=== PATIENT | female | born 1995 | race Caucasian/White ===

== ENCOUNTER → 2022-07-25 | Outpatient (CLI) | payer MEDICAID ==
[~2022-07-25] MED LIST: COLA100C5 PO; EFFE75CA2 PO; NEUR100C PO; NO HOME MEDICATIONS; PROZ10CA7 PO; SUBO8MIS SL; TRAZ-252 PO
== END ==
LOC: M OUTALCOH 10:20
PROVIDERS: ATTEND Psychiatry & Neurology Psychiatry
DX: Z13.30 Encounter for screening examination for mental health and behavioral disorders, unspecified (principal)

== ENCOUNTER 2022-08-14 14:00 | Outpatient (RCR) | payer MEDICAID | END 2022-08-21 | LOC: M OUTALCOH 14:00 | PROVIDERS: ATTEND Psychiatry & Neurology Psychiatry | DX: F11.21 Opioid dependence, in remission (principal); F12.20 Cannabis dependence, uncomplicated; F17.200 Nicotine dependence, unspecified, uncomplicated ==

== ENCOUNTER 2022-09-11 14:00 | Outpatient (RCR) | payer MEDICAID | END 2022-09-20 | LOC: M OUTALCOH 14:00 | PROVIDERS: ATTEND Psychiatry & Neurology Psychiatry | DX: F11.21 Opioid dependence, in remission (principal); F12.20 Cannabis dependence, uncomplicated; F17.200 Nicotine dependence, unspecified, uncomplicated ==

== ENCOUNTER 2022-09-25 14:00 | Outpatient (RCR) | payer MEDICAID | END 2022-10-21 | LOC: M OUTALCOH 14:00 | PROVIDERS: ATTEND Psychiatry & Neurology Psychiatry | DX: F11.21 Opioid dependence, in remission (principal); F12.20 Cannabis dependence, uncomplicated; F17.200 Nicotine dependence, unspecified, uncomplicated ==

== ENCOUNTER 2022-10-26 13:08 | Outpatient (RCR) | payer MEDICAID, OTHER | END 2022-11-21 | LOC: M OUTALCOH 13:08 | PROVIDERS: ATTEND Psychiatry & Neurology Psychiatry | DX: F11.21 Opioid dependence, in remission (principal); F12.20 Cannabis dependence, uncomplicated; F17.200 Nicotine dependence, unspecified, uncomplicated ==

== ENCOUNTER → 2023-08-03 | Outpatient (CLI) | payer OTHER ==
[~2023-08-03] MED LIST changes: +AMOX500C PO; +IBUP-1022 PO
== END ==
LOC: M RAD 16:21
PROVIDERS: ATTEND Nurse Practitioner Family
DX: K04.7 Periapical abscess without sinus (principal)

== ENCOUNTER 2023-10-20 15:17 | Emergency (ER) | payer OTHER ==
[~2023-10-20] VITALS: Ht 157.5 cm; Wt 59.2 kg
[2023-10-20 15:17] VITALS: TEMP 98
[2023-10-20] MEDS ORDERED: BUPR1SUB33 (15:28)
[2023-10-20 18:18] LABS: RSV AMPLIFICATION POSITIVE (NEGATIVE)
[2023-10-20] MEDS ORDERED: BENZ200C70 PO (19:25)
[2023-10-20 19:59] VITALS: BP 135/84; O2SAT 96
== END 2023-10-20 20:49 | disposition home or self-care (01) ==
LOC: M ED 15:17
DX: J06.9 Acute upper respiratory infection, unspecified (principal); B97.4 Respiratory syncytial virus as the cause of diseases classified elsewhere; H65.03 Acute serous otitis media, bilateral; Z88.1 Allergy status to other antibiotic agents; Z79.1 Long term (current) use of non-steroidal anti-inflammatories (NSAID)

== ENCOUNTER → 2023-11-22 | Outpatient (REF) | payer OTHER ==
[~2023-11-22] MED LIST changes: +BENZ200C70 PO; +BUPR1SUB33
[2023-11-22 17:25] LABS: BASO % 0.8 % (0.0-1.0); EOS # 0.1 10^3/uL (0.0-0.5); EOS % 2.4 % (0.0-3.0); HEMATOCRIT 42.5 % (36.0-47.0); HEMOGLOBIN 15.1 g/dl (12.0-15.5); LYMPH # 1.3 10^3/uL (1.5-5.0); LYMPH % 35.3 % (24.0-44.0); MEAN CORPUSCULAR HGB CONC 35.5 g/dl (32.0-36.5); MEAN CORPUSCULAR VOLUME 98.6 fl (80.0-96.0); MONO # 0.3 10^3/uL (0.0-0.8); NEUTROPHILS % 53.5 % (36.0-66.0); PLATELET COUNT, AUTOMATED 264 10^3/uL (150-450); RED BLOOD COUNT 4.31 10^6/uL (4.00-5.40); WHITE BLOOD COUNT 3.7 10^3/uL (4.0-10.0)
[2023-11-22 17:49] LABS: ALBUMIN 4.2 G/DL (3.2-5.2); ALKALINE PHOSPHATASE 50 U/L (46-116); ALT/SGPT 153 U/L (7.0-40); AST/SGOT 104 U/L (<34); BILIRUBIN,TOTAL 1.2 MG/DL (0.3-1.2); BLOOD UREA NITROGEN 13 MG/DL (9-23); CALCIUM LEVEL 9.4 MG/DL (8.5-10.1); CARBON DIOXIDE LEVEL 29 MMOL/L (20-31); CHLORIDE LEVEL 104 MMOL/L (98-107); CHOLESTEROL LEVEL 165 MG/DL (<200); CHOLESTEROL RISK RATIO 2.74 (<5); CREATININE FOR GFR 0.63 MG/DL (0.55-1.30); GLOMERULAR FILTRATION RATE > 60.0 (>60); GLUCOSE, FASTING 85 MG/DL (60-100); HDL CHOLESTEROL 60.2 MG/DL (>40); LDL CHOLESTEROL 92.4 MG/DL (<100); NON-HDL-C 104.8 MG/DL; POTASSIUM SERUM 4.3 MMOL/L (3.5-5.1); SODIUM LEVEL 138 MMOL/L (136-145); TOTAL PROTEIN 8.1 G/DL (5.7-8.2); TRIGLYCERIDES LEVEL 62 MG/DL (<150)
[2023-11-22 17:50] LABS: THYROID STIMULATING HORMONE 3.071 uIU/ML (0.55-4.78)
[2023-11-22 17:51] LABS: TOTAL 25(OH) VITAMIN D 15.4 NG/ML (20.0-100.0)
[2023-11-22 18:02] LABS: HEMOGLOBIN A1c 4.7 % (4.0-6.0)
== END ==
LOC: M LAB REF 16:13
PROVIDERS: ATTEND Nurse Practitioner Family
DX: Z13.228 Encounter for screening for other metabolic disorders (principal)

== ENCOUNTER → 2023-11-29 | Outpatient (REF) | payer OTHER, MEDICAID ==
[2023-11-29 18:48] LABS: ALBUMIN 4.1 G/DL (3.2-5.2); ALKALINE PHOSPHATASE 46 U/L (46-116); ALT/SGPT 182 U/L (7.0-40); AST/SGOT 109 U/L (<34); BILIRUBIN,DIRECT 0.3 MG/DL (<0.4); BILIRUBIN,TOTAL 0.9 MG/DL (0.3-1.2); TOTAL PROTEIN 7.6 G/DL (5.7-8.2)
[2023-11-29 18:49] LABS: HEPATITIS B SURFACE ANTIBODY NEGATIVE (POSITIVE)
[2023-11-29 19:39] LABS: HEPATITIS C VIRUS ABY INDEX > 11.00 INDEX (<0.8)
== END ==
LOC: M LAB REF 17:46
PROVIDERS: ATTEND Nurse Practitioner Family
DX: B18.2 Chronic viral hepatitis C (principal)

== ENCOUNTER → 2024-01-03 | Outpatient (CLI) | payer OTHER | LOC: M PLALAB 12:21 | PROVIDERS: ATTEND Internal Medicine Infectious Disease | DX: B18.2 Chronic viral hepatitis C (principal) ==

== ENCOUNTER 2024-01-31 17:41 | Emergency (ER) | payer OTHER ==
[~2024-01-31] VITALS: Ht 157.5 cm; Wt 60.4 kg
[2024-01-31] MEDS ORDERED: EPCL1TAB PO (17:54)
[2024-01-31] MEDS ORDERED: BUPR15TA PO (17:54)
[2024-01-31] MEDS ORDERED: BUPR-69 PO (17:54)
[2024-01-31 18:39] LABS: BASO % 0.9 % (0.0-1.0); EOS # 0.1 10^3/uL (0.0-0.5); EOS % 1.1 % (0.0-3.0); HEMATOCRIT 42.5 % (36.0-47.0); HEMOGLOBIN 15.4 g/dl (12.0-15.5); LYMPH # 1.2 10^3/uL (1.5-5.0); LYMPH % 25.1 % (24.0-44.0); MEAN CORPUSCULAR HEMOGLOBIN 34.5 pg (27.0-33.0); MEAN CORPUSCULAR HGB CONC 36.2 g/dl (32.0-36.5); MEAN CORPUSCULAR VOLUME 95.1 fl (80.0-96.0); MONO # 0.3 10^3/uL (0.0-0.8); MONO % 6.4 % (2.0-8.0); NEUTROPHILS # 3.1 10^3/uL (1.5-8.5); NEUTROPHILS % 66.3 % (36.0-66.0); PLATELET COUNT, AUTOMATED 247 10^3/uL (150-450); RED BLOOD COUNT 4.47 10^6/uL (4.00-5.40); WHITE BLOOD COUNT 4.7 10^3/uL (4.0-10.0)
[2024-01-31 19:04] LABS: HCG, SERUM QUALITATIVE NEGATIVE (NEGATIVE)
[2024-01-31 19:05] LABS: LIPASE 19 U/L (12-53)
[2024-01-31 19:07] LABS: ALBUMIN 4.4 G/DL (3.2-5.2); ALKALINE PHOSPHATASE 56 U/L (46-116); ALT/SGPT 227 U/L (7.0-40); AST/SGOT 246 U/L (<34); BILIRUBIN,DIRECT 0.3 MG/DL (<0.4); BILIRUBIN,TOTAL 0.9 MG/DL (0.3-1.2); BLOOD UREA NITROGEN 12 MG/DL (9-23); CALCIUM LEVEL 9.1 MG/DL (8.5-10.1); CARBON DIOXIDE LEVEL 25 MMOL/L (20-31); CHLORIDE LEVEL 105 MMOL/L (98-107); CREATININE FOR GFR 0.59 MG/DL (0.55-1.30); GLOMERULAR FILTRATION RATE > 60.0 (>60); GLUCOSE, FASTING 101 MG/DL (60-100); POTASSIUM SERUM 3.6 MMOL/L (3.5-5.1); SODIUM LEVEL 141 MMOL/L (136-145); TOTAL PROTEIN 8.2 G/DL (5.7-8.2)
[2024-01-31 21:42] VITALS: TEMP 99.3
[2024-01-31 22:22] VITALS: BP 148/99
[2024-01-31 22:37] VITALS: O2SAT 97
== END 2024-01-31 22:59 | disposition home or self-care (01) ==
LOC: M ED 17:41
DX: R31.9 Hematuria, unspecified (principal); F41.9 Anxiety disorder, unspecified; F32.9 Major depressive disorder, single episode, unspecified; Z88.1 Allergy status to other antibiotic agents; Z79.899 Other long term (current) drug therapy; Z79.1 Long term (current) use of non-steroidal anti-inflammatories (NSAID)

== ENCOUNTER 2024-03-27 01:40 | Emergency (ER) | payer OTHER, MEDICAID ==
[~2024-03-27] VITALS: Ht 157.5 cm; Wt 60.4 kg
[~2024-03-27 01:40] MED LIST changes: +BUPR-69 PO; +BUPR15TA PO; +EPCL1TAB PO
[2024-03-27 02:18] LABS: HEMATOCRIT 40.4 % (36.0-47.0); HEMOGLOBIN 14.6 g/dl (12.0-15.5); MEAN CORPUSCULAR HEMOGLOBIN 33.8 pg (27.0-33.0); MEAN CORPUSCULAR HGB CONC 36.1 g/dl (32.0-36.5); MEAN CORPUSCULAR VOLUME 93.5 fl (80.0-96.0); PLATELET COUNT, AUTOMATED 228 10^3/uL (150-450); RED BLOOD COUNT 4.32 10^6/uL (4.00-5.40); WHITE BLOOD COUNT 4.1 10^3/uL (4.0-10.0)
[2024-03-27 02:39] LABS: AMPHETAMINES LEVEL URINE NEGATIVE (NEGATIVE); BARBITURATES URINE NEGATIVE (NEGATIVE); BENZODIAZEPINES URINE NEGATIVE (NEGATIVE); COCAINE METABOLITE URINE NEGATIVE (NEGATIVE); METHADONE URINE NEGATIVE (NEGATIVE); OPIATES URINE NEGATIVE (NEGATIVE); PHENCYCLIDINE URINE NEGATIVE (NEGATIVE)
[2024-03-27 02:41] LABS: CANNABINOIDS URINE POSITIVE (NEGATIVE)
[2024-03-27 02:42] LABS: SALICYLATE LEVEL < 3.0 MG/DL (<30)
[2024-03-27 02:43] LABS: ALBUMIN 4.5 G/DL (3.2-5.2); ALKALINE PHOSPHATASE 46 U/L (46-116); ALT/SGPT 30 U/L (7.0-40); AST/SGOT 30 U/L (<34); BILIRUBIN,DIRECT 0.2 MG/DL (<0.4); BILIRUBIN,TOTAL 0.6 MG/DL (0.3-1.2); BLOOD UREA NITROGEN 9 MG/DL (9-23); CARBON DIOXIDE LEVEL 25 MMOL/L (20-31); CHLORIDE LEVEL 108 MMOL/L (98-107); CREATININE FOR GFR 0.51 MG/DL (0.55-1.30); GLOMERULAR FILTRATION RATE > 60.0 (>60); GLUCOSE, FASTING 99 MG/DL (60-100); POTASSIUM SERUM 3.5 MMOL/L (3.5-5.1); SODIUM LEVEL 142 MMOL/L (136-145)
[2024-03-27 02:54] LABS: ETHYL ALCOHOL (ETHANOL) 0.296 % (0.000-0.010)
[2024-03-27] MEDS ORDERED: ERGO500029 (09:10)
[2024-03-27] MEDS ORDERED: BUPR-71 (09:10)
[2024-03-27] MEDS ORDERED: SOFO1TAB (09:10)
[2024-03-27 09:33] VITALS: BP 137/94; TEMP 98.5; O2SAT 97
[2024-03-27] MEDS: BUPRENORPHINE/NALOXONE 2-0.5MG SUBLINGUAL TABLET(SUBOXONE) SL SCH (10:22)
== END 2024-03-27 12:22 | disposition home or self-care (01) ==
LOC: M ED 01:40
DX: F10.10 Alcohol abuse, uncomplicated (principal); F90.9 Attention-deficit hyperactivity disorder, unspecified type; Z88.1 Allergy status to other antibiotic agents; Z79.899 Other long term (current) drug therapy

== ENCOUNTER → 2024-10-07 | Outpatient (CLI) | payer OTHER ==
[~2024-10-07] MED LIST changes: +BUPR-71; +ERGO500029; +SOFO1TAB
[2024-10-07 10:31] LABS: BASO % 0.4 % (0.0-1.0); EOS # 0.1 10^3/uL (0.0-0.5); EOS % 2.5 % (0.0-3.0); HEMATOCRIT 38.4 % (36.0-47.0); HEMOGLOBIN 13.6 g/dl (12.0-15.5); LYMPH # 1.5 10^3/uL (1.5-5.0); LYMPH % 30.4 % (24.0-44.0); MEAN CORPUSCULAR HEMOGLOBIN 33.6 pg (27.0-33.0); MEAN CORPUSCULAR HGB CONC 35.4 g/dl (32.0-36.5); MEAN CORPUSCULAR VOLUME 94.8 fl (80.0-96.0); MONO # 0.4 10^3/uL (0.0-0.8); MONO % 8.9 % (2.0-8.0); NEUTROPHILS # 2.8 10^3/uL (1.5-8.5); NEUTROPHILS % 57.6 % (36.0-66.0); PLATELET COUNT, AUTOMATED 224 10^3/uL (150-450); RED BLOOD COUNT 4.05 10^6/uL (4.00-5.40); WHITE BLOOD COUNT 4.8 10^3/uL (4.0-10.0)
[2024-10-07 10:34] LABS: ALBUMIN 3.7 G/DL (3.2-5.2); BILIRUBIN,DIRECT 0.3 MG/DL (<0.4); BILIRUBIN,TOTAL 1.1 MG/DL (0.3-1.2); TOTAL PROTEIN 7.3 G/DL (5.7-8.2)
== END ==
LOC: M PLALAB 08:49
PROVIDERS: ATTEND Internal Medicine Infectious Disease
DX: B18.2 Chronic viral hepatitis C (principal)

== ENCOUNTER 2025-08-19 17:49 | Inpatient (IN) | payer OTHER ==
[~2025-08-19] VITALS: Ht 160 cm; Wt 71.1 kg
[~2025-08-19 17:49] MED LIST changes: -IBUP-1022 PO; +IBUP600T42 PO; +PROZ10CA11 PO; -PROZ10CA7 PO
[2025-08-19] MEDS: NS (Normal Saline) 0.9% 1,000 ML IV ONE (18:30)
[2025-08-19 18:44] LABS: BASO # 0.0 10^3/uL (0.0-0.2); BASO % 0.3 % (0.0-1.0); EOS # 0.0 10^3/uL (0.0-0.5); EOS % 0.0 % (0.0-3.0); LYMPH # 0.3 10^3/uL (1.5-5.0); LYMPH % 2.9 % (24.0-44.0); MONO # 1.4 10^3/uL (0.0-0.8); MONO % 12.8 % (2.0-8.0); NEUTROPHILS # 9.0 10^3/uL (1.5-8.5); NEUTROPHILS % 83.4 % (36.0-66.0); PLATELET COUNT, AUTOMATED 182 10^3/uL (150-450)
[2025-08-19] MEDS: KETOROLAC 30 MG/ML 1 ML VIAL IV ONE (19:03)
[2025-08-19] MEDS: diphenhydrAMINE 50 MG/ML VIAL IV ONE (19:04)
[2025-08-19 19:08] LABS: CK-MB VALUE MASS < 1.0 NG/ML (<3.6)
[2025-08-19 19:09] LABS: CPK CREATINE PHOSPHOKINASE 37 U/L (34-145)
[2025-08-19 19:10] LABS: ALT/SGPT 37 U/L (7.0-40); AST/SGOT 37 U/L (<34); CALCIUM LEVEL 9.5 MG/DL (8.5-10.1); CARBON DIOXIDE LEVEL 19 MMOL/L (20-31); CHLORIDE LEVEL 94 MMOL/L (98-107); CREATININE FOR GFR 0.64 MG/DL (0.55-1.30); GLOMERULAR FILTRATION RATE > 90.0 (>60); POTASSIUM SERUM 3.1 MMOL/L (3.5-5.1); SODIUM LEVEL 134 MMOL/L (136-145)
[2025-08-19 19:11] LABS: HCG, SERUM QUALITATIVE NEGATIVE (NEGATIVE)
[2025-08-19] MEDS ORDERED: ISOVUE-370 76% 100 ML VIAL As Ordered ONE (19:17)
[2025-08-19 19:58] LABS: CK-MB VALUE MASS < 1.0 NG/ML (<3.6)
[2025-08-19] MEDS ORDERED: MORPHINE 4 MG/ML 1 ML VIAL IV PRN (20:05)
[2025-08-19 20:06] LABS: CPK CREATINE PHOSPHOKINASE 36 U/L (34-145)
[2025-08-19] MEDS: CIPROFLOXACIN 500 MG TABLET PO ONE (20:51)
[2025-08-19] MEDS: POTASSIUM CHLORIDE 10MEQ SR TABLET PO ONE (20:51)
[2025-08-19 21:07] LABS: VENOUS BASE EXCESS -0.5 (-2.0-2.0); VENOUS HCO3 25.3 MMOL/L (23.0-27.0); VENOUS O2 SATURATION 74.9 % (60.0-80.0); VENOUS PARTIAL PRESSURE CO2 45.9 mmHg (38.0-50.0); VENOUS PARTIAL PRESSURE O2 38.8 mmHg (30.0-50.0); VENOUS PH 7.359 UNITS (7.330-7.430); VENOUS STANDARD HCO3 23.5 MMOL/L; VENOUS TOTAL CO2 26.7 MMOL/L (24.0-28.0)
[2025-08-19 22:19] LABS: KETONE, URINE AUTO RFX 1+ mg/dL (NEGATIVE); MUCUS, URINE RFX SMALL (NEGATIVE); NITRITE, URINE AUTO RFX NEGATIVE (NEGATIVE); RBC, URINE AUTO RFX 12 /HPF (0-3); SQUAM EPITHELIAL CELL UR AURFX 1 /HPF (0-6)
[2025-08-19 22:20] LABS: LEUKOCYTE ESTERASE UR AUTO RFX 2+ (NEGATIVE); WBC, URINE AUTO RFX TNTC /HPF (0-3)
[2025-08-19 22:45] LABS: CALCIUM LEVEL 8.6 MG/DL (8.5-10.1); CARBON DIOXIDE LEVEL 22 MMOL/L (20-31); CHLORIDE LEVEL 95 MMOL/L (98-107); CREATININE FOR GFR 0.63 MG/DL (0.55-1.30); GLOMERULAR FILTRATION RATE > 90.0 (>60); POTASSIUM SERUM 3.2 MMOL/L (3.5-5.1); SODIUM LEVEL 133 MMOL/L (136-145)
[2025-08-19] MEDS: ACETAMINOPHEN 500 MG TAB PO ONE (23:00)
[2025-08-20] MEDS ORDERED: ONDANSETRON 4MG/2ML VIAL IV PRN (01:10)
[2025-08-20] MEDS: ACETAMINOPHEN 325 MG TAB PO PRN (05:44)
[2025-08-20] MEDS ORDERED: GUAN1TA PO (08:34)
[2025-08-20] MEDS ORDERED: QUET50TA4 PO (08:34)
[2025-08-20] MEDS ORDERED: BUPR1SUB5 SL (08:34)
[2025-08-20] MEDS ORDERED: ADDE30CA3 PO (08:34)
[2025-08-20] MEDS ORDERED: HOME MED LIST COMPLETE! XX SCH (08:35)
[2025-08-20] MEDS ORDERED: CIPROFLOXACIN 500 MG TABLET PO SCH (09:00)
[2025-08-20] MEDS: PIPERACILLIN/TAZOBACTAM SOD 3.375 GM in DEXTROSE 5% (D5W) ADV/MINI-BAG 50 ML IV SCH (09:12)
[2025-08-20 09:30] LABS: PLATELET COUNT, AUTOMATED 179 10^3/uL (150-450)
[2025-08-20 09:49] LABS: ALT/SGPT 28 U/L (7.0-40); AST/SGOT 29 U/L (<34); CALCIUM LEVEL 8.8 MG/DL (8.5-10.1); CARBON DIOXIDE LEVEL 23 MMOL/L (20-31); CHLORIDE LEVEL 99 MMOL/L (98-107); CREATININE FOR GFR 0.54 MG/DL (0.55-1.30); GLOMERULAR FILTRATION RATE > 90.0 (>60); POTASSIUM SERUM 3.2 MMOL/L (3.5-5.1); SODIUM LEVEL 136 MMOL/L (136-145)
[2025-08-20 20:00] VITALS: BP 126/87; TEMP 98.6; O2SAT 96
[2025-08-20] MEDS: POTASSIUM CHLORIDE 10% LIQ 20MEQ/15ML UDC PO ONE (20:23)
[2025-08-20] MEDS: ENOXAPARIN 40 MG/0.4 ML SYRINGE (J1650 PER 10MG) SC SCH (20:24)
[2025-08-21 00:32] VITALS: BP 119/86; TEMP 98.8; O2SAT 96
[2025-08-21 04:37] VITALS: BP 132/84; TEMP 102.3; O2SAT 94
[2025-08-21 06:50] LABS: PLATELET COUNT, AUTOMATED 187 10^3/uL (150-450)
[2025-08-21 07:23] LABS: BARBITURATES URINE NEGATIVE (NEGATIVE); BENZODIAZEPINES URINE NEGATIVE (NEGATIVE)
[2025-08-21 07:24] LABS: CANNABINOIDS URINE NEGATIVE (NEGATIVE); COCAINE METABOLITE URINE NEGATIVE (NEGATIVE); METHADONE URINE NEGATIVE (NEGATIVE); OPIATES URINE NEGATIVE (NEGATIVE); PHENCYCLIDINE URINE NEGATIVE (NEGATIVE)
[2025-08-21 07:27] LABS: AMPHETAMINES LEVEL URINE POSITIVE (NEGATIVE)
[2025-08-21 07:29] LABS: ALT/SGPT 28 U/L (7.0-40); AST/SGOT 43 U/L (<34); CALCIUM LEVEL 8.0 MG/DL (8.5-10.1); CARBON DIOXIDE LEVEL 26 MMOL/L (20-31); CHLORIDE LEVEL 96 MMOL/L (98-107); CREATININE FOR GFR 0.48 MG/DL (0.55-1.30); GLOMERULAR FILTRATION RATE > 90.0 (>60); MAGNESIUM LEVEL 1.5 MG/DL (1.8-2.4); POTASSIUM SERUM 2.9 MMOL/L (3.5-5.1); SODIUM LEVEL 134 MMOL/L (136-145)
[2025-08-21] MEDS: POTASSIUM CHLORIDE 10MEQ SR TABLET PO SCH (08:02)
[2025-08-21] MEDS: BUPRENORPHINE/NALOXONE 8-2MG SUBLINGUAL TABLET(SUBOXONE) SL SCH (08:02)
[2025-08-21] MEDS: MAG SULF 1GM/100ML (MAG RUN) 1 GM in IV 1 EA IV SCH (08:07)
[2025-08-21] MEDS: MIRALAX *UNIT DOSE* 17 GM PACKET PO SCH (09:00)
[2025-08-21 10:00] VITALS: BP 120/83; TEMP 99.1; O2SAT 95
[2025-08-21] MEDS: KCL 10MEQ/100ML SWI (KRUN) 10 MEQ in IV 1 EA IV SCH (10:41)
[2025-08-21 14:00] VITALS: BP 139/93; TEMP 99.5; O2SAT 96
[2025-08-21] MEDS: LR 1,000 ML IV SCH (14:45)
[2025-08-21 19:40] VITALS: BP 126/80; TEMP 99.9; O2SAT 99
[2025-08-21] MEDS: ONDANSETRON 4MG ORAL DISINTEGRATING TAB PO PRN (20:28)
[2025-08-21 23:51] LABS: HIV 1&2 SCREEN NEGATIVE (NEGATIVE)
[2025-08-22 00:01] VITALS: BP 110/76; TEMP 99.1; O2SAT 96
[2025-08-22] MEDS: QUEtiapine FUMARATE 50MG TAB PO PRN (00:17)
[2025-08-22 05:31] VITALS: BP 123/82; TEMP 98.9; O2SAT 97
[2025-08-22] MEDS: AUGMENTIN 875 MG TAB PO SCH (06:35)
[2025-08-22 07:19] LABS: PLATELET COUNT, AUTOMATED 227 10^3/uL (150-450)
[2025-08-22 08:07] LABS: ALT/SGPT 24 U/L (7.0-40); AST/SGOT 30 U/L (<34); CALCIUM LEVEL 8.2 MG/DL (8.5-10.1); CARBON DIOXIDE LEVEL 27 MMOL/L (20-31); CHLORIDE LEVEL 97 MMOL/L (98-107); CREATININE FOR GFR 0.55 MG/DL (0.55-1.30); GLOMERULAR FILTRATION RATE > 90.0 (>60); MAGNESIUM LEVEL 1.8 MG/DL (1.8-2.4); POTASSIUM SERUM 3.6 MMOL/L (3.5-5.1); SODIUM LEVEL 135 MMOL/L (136-145)
[2025-08-22] MEDS: POTASSIUM CHLORIDE 10MEQ SR TABLET PO ONE (08:43)
[2025-08-22 10:02] VITALS: BP 98/64; TEMP 98.8; O2SAT 96
[2025-08-22 16:00] VITALS: BP 129/89; TEMP 98.6; O2SAT 93
[2025-08-22 20:20] VITALS: BP 133/89; TEMP 98.1; O2SAT 98
[2025-08-22] MEDS: PANTOPRAZOLE 40MG TAB PO SCH (21:39)
[2025-08-23 00:10] VITALS: BP 121/84; TEMP 97.3; O2SAT 98
[2025-08-23 05:44] VITALS: BP 113/69; TEMP 96.9; O2SAT 97
[2025-08-23 06:59] LABS: PLATELET COUNT, AUTOMATED 249 10^3/uL (150-450)
[2025-08-23 07:26] LABS: ALT/SGPT 24 U/L (7.0-40); AST/SGOT 32 U/L (<34); CALCIUM LEVEL 8.3 MG/DL (8.5-10.1); CARBON DIOXIDE LEVEL 29 MMOL/L (20-31); CHLORIDE LEVEL 98 MMOL/L (98-107); CREATININE FOR GFR 0.61 MG/DL (0.55-1.30); GLOMERULAR FILTRATION RATE > 90.0 (>60); MAGNESIUM LEVEL 1.8 MG/DL (1.8-2.4); POTASSIUM SERUM 3.6 MMOL/L (3.5-5.1); SODIUM LEVEL 137 MMOL/L (136-145)
[2025-08-23] MEDS ORDERED: AMOX875T2 PO (08:14)
[2025-08-23] MEDS ORDERED: ONDA-282 PO (08:14)
[2025-08-23] MEDS: MAG SULF 1GM/100ML (MAG RUN) 1 GM in IV 1 EA IV ONE (08:48)
[2025-08-23] MEDS: POTASSIUM CHLORIDE 10% LIQ 20MEQ/15ML UDC PO ONE (08:55)
[2025-08-23 10:00] VITALS: BP 124/82; TEMP 98.2; O2SAT 95
== END 2025-08-23 11:24 | disposition home or self-care (01) | DRG 720 ==
LOC: M ED 17:49 → M ED INP 17:50 → M MS5PR 08-20 14:20 → OBSVTOIN 08-21 07:49
PROVIDERS: ADMIT Student in an Organized Health Care Education/Training Program; ATTEND Student in an Organized Health Care Education/Training Program
DX: A41.51 Sepsis due to Escherichia coli [E. coli] (principal); N12 Tubulo-interstitial nephritis, not specified as acute or chronic; F11.10 Opioid abuse, uncomplicated; F90.9 Attention-deficit hyperactivity disorder, unspecified type; G47.00 Insomnia, unspecified; E87.6 Hypokalemia; B96.20 Unspecified Escherichia coli [E. coli] as the cause of diseases classified elsewhere; F17.290 Nicotine dependence, other tobacco product, uncomplicated; J32.0 Chronic maxillary sinusitis; K04.7 Periapical abscess without sinus; Z79.899 Other long term (current) drug therapy; Z88.1 Allergy status to other antibiotic agents